=== PATIENT | female | born 1945 | race Two or more races ===

== ENCOUNTER 2024-02-07 20:09 | Inpatient (IN) | payer MEDICARE, OTHER ==
[~2024-02-07] VITALS: Ht 154.9 cm; Wt 70.3 kg
[2024-02-07] MEDS: ENOXAPARIN SODIUM 40 MG/0.4 ML DISP.SYRIN SQ SCH (21:00)
[2024-02-07 21:10] LABS: BASOPHILS % (AUTO) 0.3 % (0.0-2.0); EOSINOPHILS # (AUTO) 0.1 K/uL (0.0-0.7); EOSINOPHILS % (AUTO) 0.8 % (0.0-6.0); HEMATOCRIT 23 % (33-45); HEMOGLOBIN 7.5 g/dL (11.5-14.8); LYMPHOCYTES # (AUTO) 1.1 K/uL (0.8-4.8); LYMPHOCYTES % (AUTO) 7.9 % (20.0-44.0); MEAN CORPUSCULAR HEMOGLOBIN 31 PG (26.0-33.0); MEAN CORPUSCULAR HGB CONC 33 g/dl (31.0-36.0); MEAN CORPUSCULAR VOLUME 95 fL (82-100); MONOCYTES % (AUTO) 7.1 % (2.0-12.0); NEUTROPHILS # (AUTO) 11.7 K/uL (1.8-8.9); NEUTROPHILS % (AUTO) 83.9 % (43.0-81.0); PLATELET COUNT (AUTO) 283 K/uL (150-450); RED BLOOD CELL COUNT(AUTO) 2.43 MIL/uL (4.0-5.2); RED CELL DISTRIBUTION WIDTH 13.1 % (11.5-15.0); WHITE BLOOD COUNT (AUTO) 13.9 K/uL (4.3-11.0)
[2024-02-07 21:15] LABS: CALCIUM, SERUM 9.3 mg/dL (8.5-10.1); CARBON DIOXIDE 24 mmol/L (21-32); CHLORIDE 102 mmol/L (98-107); CREATININE 1.2 mg/dL (0.6-1.3); GLUCOSE 107 mg/dL (74-106); POTASSIUM 3.8 mmol/L (3.5-5.1); SODIUM SERUM 131 mmol/L (136-145); UREA NITROGEN, BLOOD 29 mg/dL (7-18)
[2024-02-07 21:27] LABS: ALANINE AMINOTRANSFERASE 58 U/L (12-78); ALBUMIN 2.9 g/dL (3.4-5.0); ALKALINE PHOSPHATASE 150 U/L (46-116); ASPARTATE AMINOTRANSFERASE 16 U/L (15-37); BILIRUBIN,DIRECT 0.1 mg/dL (0.0-0.2); BILIRUBIN,TOTAL 0.3 mg/dL (0.2-1.0); LIPASE 65 U/L (16-77); TOTAL PROTEIN, SERUM 8.2 g/dL (6.4-8.2)
[2024-02-07] MEDS ORDERED: VANCOMYCIN 1 GM /D5W 250 ML PB IV ONE (21:40)
[2024-02-07] MEDS ORDERED: PIPERACI/TAZO 3.375GM/D5W 50ML PB IV ONE (21:41)
[2024-02-07] MEDS: PIPERACILLIN /TAZOBACTAM 3.375 G in IV D5W 50 ML IV ONE (21:45)
[2024-02-07 21:59] LABS: APPEARANCE,URINE Clear (CLEAR); BILIRUBIN,URINE Negative (NEGATIVE); BLOOD, URINE Small Ery/uL (NEGATIVE); COLOR,URINE YELLOW (YELLOW); KETONES,URINE Negative (NEGATIVE); LEUKOCYTE ESTERASE ,URINE Negative (NEGATIVE); NITRITE, URINE Negative (NEGATIVE); PH,URINE 5.5 (5.0-8.0); PROTEIN,URINE 30 mg/dl (NEGATIVE); UGLUCOSE Negative (NEGATIVE); UROBILINOGEN,URINE 0.2 EU/dL (0.2)
[2024-02-07] MEDS: VANCOMYCIN 1 GM in IV D5W 250 ML IV ONE (22:15)
[2024-02-07 22:32] LABS: ADD URINE CULTURE NO; BACTERIA,URINE Rare /HPF (None Seen); SQUAMOUS EPITHELIAL CELL,UR Rare /HPF (None Seen); WBC,URINE 0-2 /HPF (0-3)
[2024-02-07] MEDS ORDERED: ZOLPIDEM TARTRATE 5 MG TABLET PO PRN (23:00)
[2024-02-07] MEDS ORDERED: MAG HYDROX/AL HYDROX/SIMETH 30 ML UDC PO PRN (23:00)
[2024-02-07] MEDS ORDERED: Z GUARD REMEDY 4 OZ OINT TP PRN (23:00)
[2024-02-07] MEDS ORDERED: MAGNESIUM HYDROXIDE 30 ML UDC PO PRN (23:00)
[2024-02-07] MEDS ORDERED: ONDANSETRON HCL/PF 4 MG/2 ML VIAL IVP PRN (23:00)
[2024-02-07 23:05] VITALS: BP 127/58; TEMP 97.8; O2SAT 99
[2024-02-07 23:50] LABS: ANISOCYTOSIS 1+; BASOPHILS % (MANUAL) 0 % (0.0-2.0); EOSINOPHILS % (MANUAL) 1 % (0-4); LYMPHOCYTES % (MANUAL) 12 % (16-48); MONOCYTES % (MANUAL) 5 % (0-11.0); NEUTROPHILS % (MANUAL) 82 (42-76); PLATELET ESTIMATE ADEQUATE
[2024-02-07 23:56] VITALS: BP 127/58; TEMP 97.8; O2SAT 97
[2024-02-08] MEDS: IV D5/0.45 NACL 1,000 ML IV PRN (00:11)
[2024-02-08] MEDS: ENOXAPARIN SODIUM 40 MG/0.4 ML DISP.SYRIN SQ ONE (00:14)
[2024-02-08 07:30] VITALS: BP 139/53; TEMP 98.4; O2SAT 99
[2024-02-08] MEDS: PANTOPRAZOLE 40 MG TABLET.DR PO SCH (07:43)
[2024-02-08 08:06] LABS: LACTIC ACID 0.7 mmol/L (0.4-2.0)
[2024-02-08 08:53] LABS: ALANINE AMINOTRANSFERASE 47 U/L (12-78); ALBUMIN 2.4 g/dL (3.4-5.0); ALKALINE PHOSPHATASE 144 U/L (46-116); ASPARTATE AMINOTRANSFERASE 14 U/L (15-37); BILIRUBIN,DIRECT 0.1 mg/dL (0.0-0.2); BILIRUBIN,TOTAL 0.3 mg/dL (0.2-1.0); CALCIUM, SERUM 9.1 mg/dL (8.5-10.1); CARBON DIOXIDE 22 mmol/L (21-32); CHLORIDE 104 mmol/L (98-107); GLUCOSE 330 mg/dL (74-106); MAGNESIUM 1.9 mg/dL (1.8-2.4); PHOSPHORUS 3.3 mg/dL (2.5-4.9); POTASSIUM 4.6 mmol/L (3.5-5.1); SODIUM SERUM 135 mmol/L (136-145); TOTAL PROTEIN, SERUM 7.4 g/dL (6.4-8.2); UREA NITROGEN, BLOOD 25 mg/dL (7-18)
[2024-02-08 09:22] LABS: BASOPHILS % (AUTO) 0.2 % (0.0-2.0); EOSINOPHILS # (AUTO) 0.1 K/uL (0.0-0.7); EOSINOPHILS % (AUTO) 1.2 % (0.0-6.0); HEMATOCRIT 22 % (33-45); HEMOGLOBIN 7.2 g/dL (11.5-14.8); LYMPHOCYTES # (AUTO) 1.6 K/uL (0.8-4.8); LYMPHOCYTES % (AUTO) 19.8 % (20.0-44.0); MEAN CORPUSCULAR HEMOGLOBIN 32 PG (26.0-33.0); MEAN CORPUSCULAR HGB CONC 34 g/dl (31.0-36.0); MEAN CORPUSCULAR VOLUME 96 fL (82-100); MONOCYTES # (AUTO) 0.5 K/uL (0.1-1.30); MONOCYTES % (AUTO) 6.4 % (2.0-12.0); NEUTROPHILS # (AUTO) 5.9 K/uL (1.8-8.9); NEUTROPHILS % (AUTO) 72.4 % (43.0-81.0); PLATELET COUNT (AUTO) 294 K/uL (150-450); RED BLOOD CELL COUNT(AUTO) 2.26 MIL/uL (4.0-5.2); RED CELL DISTRIBUTION WIDTH 13.4 % (11.5-15.0); WHITE BLOOD COUNT (AUTO) 8.1 K/uL (4.3-11.0)
[2024-02-08] MEDS ORDERED: ATRO2DRO4 RIGHTEYE (11:14)
[2024-02-08] MEDS ORDERED: MELA3TAB41 PO (11:14)
[2024-02-08] MEDS ORDERED: ACET325T53 PO (11:14)
[2024-02-08] MEDS ORDERED: DOCU100C36 PO (11:14)
[2024-02-08] MEDS ORDERED: LISI10TA29 PO (11:14)
[2024-02-08] MEDS ORDERED: HYDR-4076 PO (11:14)
[2024-02-08] MEDS ORDERED: AMLO-212 PO (11:14)
[2024-02-08] MEDS ORDERED: CARV6.252 PO (11:14)
[2024-02-08] MEDS ORDERED: INSU100I26 SQ (11:14)
[2024-02-08] MEDS ORDERED: INSU100V35 SQ (11:14)
[2024-02-08] MEDS ORDERED: MULT-213 PO (11:14)
[2024-02-08] MEDS ORDERED: POLY17PO4 PO (11:14)
[2024-02-08] MEDS ORDERED: GABA-532 PO (11:14)
[2024-02-08] MEDS ORDERED: INSU100I33 SQ (11:14)
[2024-02-08] MEDS ORDERED: FERR325T23 PO (11:14)
[2024-02-08] MEDS ORDERED: ASPI-1169 PO (11:14)
[2024-02-08] MEDS ORDERED: PRED5DRO17 RIGHTEYE (11:14)
[2024-02-08] MEDS ORDERED: PANT40TA49 PO (11:14)
[2024-02-08] MEDS ORDERED: CYCL30DR EACHEYE (11:14)
[2024-02-08] MEDS ORDERED: LIDO700A30 TP (11:14)
[2024-02-08] MEDS ORDERED: APIX5TAB PO (11:14)
[2024-02-08] MEDS: IV D5/ 0.9% NACL 1,000 ML IV PRN (15:01)
[2024-02-08 16:00] VITALS: BP 124/47; TEMP 98.4; O2SAT 98
[2024-02-08 20:00] VITALS: BP 142/51; TEMP 98.4; O2SAT 100
[2024-02-08] MEDS: VANCOMYCIN 1 GM in IV D5W 250 ML IV SCH (21:49)
[2024-02-08] MEDS: ACETAMINOPHEN 325 MG TABLET PO PRN (23:32)
[2024-02-09] MEDS: BLOOD SUGAR DIAGNOSTIC 1 EACH STRIP IN SCH (06:40)
[2024-02-09 07:21] LABS: BASOPHILS % (AUTO) 0.4 % (0.0-2.0); EOSINOPHILS # (AUTO) 0.1 K/uL (0.0-0.7); EOSINOPHILS % (AUTO) 2.2 % (0.0-6.0); HEMATOCRIT 22 % (33-45); HEMOGLOBIN 7.6 g/dL (11.5-14.8); LYMPHOCYTES % (AUTO) 31.5 % (20.0-44.0); MEAN CORPUSCULAR HEMOGLOBIN 32 PG (26.0-33.0); MEAN CORPUSCULAR HGB CONC 35 g/dl (31.0-36.0); MEAN CORPUSCULAR VOLUME 94 fL (82-100); MONOCYTES # (AUTO) 0.6 K/uL (0.1-1.30); NEUTROPHILS # (AUTO) 3.5 K/uL (1.8-8.9); NEUTROPHILS % (AUTO) 55.9 % (43.0-81.0); PLATELET COUNT (AUTO) 291 K/uL (150-450); RED BLOOD CELL COUNT(AUTO) 2.34 MIL/uL (4.0-5.2); RED CELL DISTRIBUTION WIDTH 13.1 % (11.5-15.0); WHITE BLOOD COUNT (AUTO) 6.3 K/uL (4.3-11.0)
[2024-02-09 07:38] LABS: CALCIUM, SERUM 8.8 mg/dL (8.5-10.1); CARBON DIOXIDE 22 mmol/L (21-32); CHLORIDE 107 mmol/L (98-107); CREATININE 0.9 mg/dL (0.6-1.3); GLUCOSE 213 mg/dL (74-106); POTASSIUM 4.3 mmol/L (3.5-5.1); SODIUM SERUM 137 mmol/L (136-145); UREA NITROGEN, BLOOD 15 mg/dL (7-18)
[2024-02-09 07:59] LABS: THYROID STIMULATING HORMONE 5.28 uIU/mL (0.358-3.74); URIC ACID 5.3 mg/dL (2.6-7.2)
[2024-02-09 08:00] VITALS: BP 141/62; TEMP 97.9; O2SAT 99
[2024-02-09 08:48] LABS: MAGNESIUM 1.8 mg/dL (1.8-2.4); PHOSPHORUS 2.8 mg/dL (2.5-4.9)
[2024-02-09] MEDS: prednisoLONE ACETATE 1% SUSP 5 ML BOTTLE RIGHTEYE SCH (12:39)
[2024-02-09 13:30] LABS: URINE SODIUM, RANDOM 124 mmol/l (40-220)
[2024-02-09 16:00] VITALS: BP 145/53; TEMP 98.2; O2SAT 99
[2024-02-09] MEDS: FERROUS SULFATE (325 MG) 325 MG/TAB TABLET PO SCH (17:22)
[2024-02-09] MEDS: DOCUSATE SODIUM 100 MG CAPSULE PO SCH (17:22)
[2024-02-09] MEDS: LISINOPRIL (10MG) 10 MG TABLET PO SCH (17:24)
[2024-02-09] MEDS: CARVEDILOL 6.25 MG TABLET PO SCH (17:24)
[2024-02-09] MEDS: APIXABAN 5 MG TABLET PO SCH (17:25)
[2024-02-09 20:00] VITALS: BP 147/49; TEMP 98.1; O2SAT 100
[2024-02-09] MEDS: INSULIN GLARGINE, 100 UNIT/ML CARTRIDGE SQ SCH (21:55)
[2024-02-10 08:00] VITALS: BP 139/60; TEMP 98.4; O2SAT 100
[2024-02-10] MEDS: GABAPENTIN 100 MG CAPSULE PO SCH (08:55)
[2024-02-10] MEDS: POLYETHYLENE GLYCOL 3350 17 GM POWD.PACK PO SCH (08:55)
[2024-02-10] MEDS: PANTOPRAZOLE 40 MG TABLET.DR PO SCH (08:56)
[2024-02-10] MEDS: ASPIRIN 81 MG TAB.CHEW PO SCH (08:56)
[2024-02-10] MEDS: LIDOCAINE 5% (PATCH) 1 EA PATCH TP SCH (08:57)
[2024-02-10] MEDS: AMLODIPINE BESYLATE 5 MG TABLET PO SCH (08:57)
[2024-02-10 13:16] LABS: CALCIUM, SERUM 8.7 mg/dL (8.5-10.1); CARBON DIOXIDE 24 mmol/L (21-32); CHLORIDE 105 mmol/L (98-107); CREATININE 0.9 mg/dL (0.6-1.3); GLUCOSE 321 mg/dL (74-106); POTASSIUM 4.1 mmol/L (3.5-5.1); SODIUM SERUM 138 mmol/L (136-145); UREA NITROGEN, BLOOD 10 mg/dL (7-18)
[2024-02-10 16:00] VITALS: BP 121/54; TEMP 99; O2SAT 99
[2024-02-10 16:35] VITALS: BP 110/50
== END 2024-02-10 18:23 | DRG 638 ==
LOC: ER 20:19 → TELE 22:45 → MED 23:08
PROVIDERS: ADMIT Nurse Practitioner Family
DX: E11.649 Type 2 diabetes mellitus with hypoglycemia without coma (principal); E87.1 Hypo-osmolality and hyponatremia; S22.41XA Multiple fractures of ribs, right side, initial encounter for closed fracture; E86.0 Dehydration; E88.09 Other disorders of plasma-protein metabolism, not elsewhere classified; D64.9 Anemia, unspecified; D72.829 Elevated white blood cell count, unspecified; Z88.0 Allergy status to penicillin; R79.89 Other specified abnormal findings of blood chemistry; Z20.822 Contact with and (suspected) exposure to COVID-19; X58.XXXA Exposure to other specified factors, initial encounter; Y93.9 Activity, unspecified; Y92.129 Unspecified place in nursing home as the place of occurrence of the external cause
CPT/HCPCS: 36415; 71045-TC; 80048-TC; 80076-TC; 81001; 82962-TC; 83605-TC; 83690-TC; 83735-TC; 83935-TC; 84100-TC; 84300-TC; 84443-TC; 84484-TC; 84550-TC; 85025-TC; 87040-TC; 87081-TC; 87086-TC; A4223; G0378; J1650; J1815; J2543; J3370; J3490; J7042; J7060

== ENCOUNTER 2024-09-04 03:33 | Inpatient (IN) | payer MEDICARE, OTHER ==
[~2024-09-04] VITALS: Ht 157.5 cm; Wt 69.9 kg
[~2024-09-04 03:33] MED LIST: ACET325T53 PO; AMLO-212 PO; APIX5TAB PO; ASPI-1169 PO; ATRO2DRO4 RIGHTEYE; CARV6.252 PO; CYCL30DR EACHEYE; DOCU100C36 PO; FERR325T23 PO; GABA-532 PO; HYDR-4076 PO; INSU100I26 SQ; INSU100I33 SQ; INSU100V35 SQ; LIDO700A30 TP; LISI10TA29 PO; MELA3TAB41 PO; MULT-213 PO; PANT40TA49 PO; POLY17PO4 PO; PRED5DRO17 RIGHTEYE
[2024-09-04 04:48] LABS: BASOPHILS # (AUTO) 0.1 K/uL (0.0-0.2); EOSINOPHILS % (AUTO) 0.5 % (0.0-6.0); HEMATOCRIT 25 % (33-45); HEMOGLOBIN 8.8 g/dL (11.5-14.8); LYMPHOCYTES # (AUTO) 1.7 K/uL (0.8-4.8); LYMPHOCYTES % (AUTO) 23.5 % (20.0-44.0); MEAN CORPUSCULAR HEMOGLOBIN 31 PG (26.0-33.0); MEAN CORPUSCULAR HGB CONC 35 g/dl (31.0-36.0); MEAN CORPUSCULAR VOLUME 90 fL (82-100); MONOCYTES # (AUTO) 0.8 K/uL (0.1-1.30); MONOCYTES % (AUTO) 10.1 % (2.0-12.0); NEUTROPHILS # (AUTO) 4.8 K/uL (1.8-8.9); NEUTROPHILS % (AUTO) 64.9 % (43.0-81.0); PLATELET COUNT (AUTO) 283 K/uL (150-450); RED CELL DISTRIBUTION WIDTH 12.5 % (11.5-15.0); WHITE BLOOD COUNT (AUTO) 7.4 K/uL (4.3-11.0)
[2024-09-04 05:08] LABS: CALCIUM, SERUM 8.5 mg/dL (8.5-10.1); CREATININE 1.1 mg/dL (0.6-1.3); POTASSIUM 4.1 mmol/L (3.5-5.1)
[2024-09-04 05:23] LABS: ALBUMIN 2.5 g/dL (3.4-5.0); BILIRUBIN,TOTAL 0.2 mg/dL (0.2-1.0); TOTAL PROTEIN, SERUM 7.3 g/dL (6.4-8.2)
[2024-09-04] MEDS ORDERED: ACETAMINOPHEN ES 500 MG TABLET ONE (07:51)
[2024-09-04] MEDS: ACETAMINOPHEN 325 MG TABLET PO ONE (07:52)
[2024-09-04] MEDS ORDERED: GUAI100S9 PO (09:31)
[2024-09-04] MEDS ORDERED: ZINC56.713 TP (09:31)
[2024-09-04] MEDS ORDERED: IPRA3AMP22 IH (09:31)
[2024-09-04] MEDS ORDERED: INSU100V36 SQ (09:31)
[2024-09-04] MEDS ORDERED: ONDA4TAB5 PO (09:31)
[2024-09-04] MEDS ORDERED: Z GUARD REMEDY 4 OZ OINT TP PRN (12:30)
[2024-09-04] MEDS ORDERED: ONDANSETRON HCL/PF 4 MG/2 ML VIAL IVP PRN (12:30)
[2024-09-04] MEDS ORDERED: MAG HYDROX/AL HYDROX/SIMETH 30 ML UDC PO PRN (12:30)
[2024-09-04] MEDS ORDERED: GUAIFENESIN 300 MG/15 ML UDC PO PRN (12:30)
[2024-09-04] MEDS ORDERED: hydrALAZINE HCL 25 MG TABLET PO PRN (12:30)
[2024-09-04] MEDS ORDERED: ENOXAPARIN SODIUM 30 MG/0.3 ML DISP.SYRIN SQ SCH (12:30)
[2024-09-04] MEDS: IPRATROPIUM NEB FS 0.5 MG/2.5 ML AMPUL.NEB NEB SCH (13:30)
[2024-09-04] MEDS: ALBUTEROL FS 2.5 MG/3 ML VIAL.NEB NEB SCH (13:30)
[2024-09-04] MEDS: AMLODIPINE BESYLATE 5 MG TABLET PO SCH (14:31)
[2024-09-04] MEDS: FERROUS SULFATE (325 MG) 325 MG/TAB TABLET PO SCH (14:31)
[2024-09-04] MEDS ORDERED: DEXTROSE 50%-WATER 50 ML DISP.SYRIN IV PRN (15:30)
[2024-09-04 16:00] VITALS: BP 137/48; TEMP 97.9; O2SAT 98
[2024-09-04] MEDS ORDERED: CT SWABBABLE VALVE TRANS SET 1 EA INFUS.SET MC ONE (16:07)
[2024-09-04] MEDS ORDERED: IOHEXOL-350 100 ML VIAL IV ONE (16:07)
[2024-09-04] MEDS ORDERED: IV NS 0.9% 250 ML IV ONE (16:07)
[2024-09-04] MEDS ORDERED: Medication Not On Formulary EA (Cyclosporine (Restasis) 1 DROP) EACHEYE SCH (17:00)
[2024-09-04] MEDS: LISINOPRIL (10MG) 10 MG TABLET PO SCH (17:06)
[2024-09-04] MEDS: CARVEDILOL 6.25 MG TABLET PO SCH (17:06)
[2024-09-04] MEDS: APIXABAN 5 MG TABLET PO SCH (17:07)
[2024-09-04] MEDS: DOCUSATE SODIUM 100 MG CAPSULE PO SCH (17:08)
[2024-09-04] MEDS: ZINC OXIDE 56.7 GM TUBE TP SCH (17:11)
[2024-09-04] MEDS: BLOOD SUGAR DIAGNOSTIC 1 EACH STRIP IN SCH (17:15)
[2024-09-04] MEDS: INSULIN REGULAR, HUMAN 100 UNIT/ML 3 ML VIAL SQ PRN (17:15)
[2024-09-04] MEDS ORDERED: DOCUSATE SODIUM 100 MG CAPSULE PO SCH (18:00)
[2024-09-04 20:00] VITALS: BP 126/53; TEMP 97.8; O2SAT 97
[2024-09-04 20:13] VITALS: O2SAT 97
[2024-09-04 20:28] VITALS: O2SAT 100
[2024-09-04] MEDS: INSULIN GLARGINE, 100 UNIT/ML CARTRIDGE SQ SCH (21:33)
[2024-09-04] MEDS: MAGNESIUM HYDROXIDE 30 ML UDC PO PRN (21:38)
[2024-09-04] MEDS ORDERED: Medication Not On Formulary EA (Melatonin 3 MG) PO SCH (22:00)
[2024-09-05] VITALS (9 sets, daily range): BP systolic 112–138; BP diastolic 44–51; TEMP 98.1–98.3; O2SAT 97–100
[2024-09-05 07:16] LABS: BASOPHILS % (AUTO) 0.3 % (0.0-2.0); EOSINOPHILS # (AUTO) 0.1 K/uL (0.0-0.7); EOSINOPHILS % (AUTO) 1.5 % (0.0-6.0); HEMATOCRIT 25 % (33-45); HEMOGLOBIN 8.5 g/dL (11.5-14.8); LYMPHOCYTES # (AUTO) 2.2 K/uL (0.8-4.8); LYMPHOCYTES % (AUTO) 29.8 % (20.0-44.0); MEAN CORPUSCULAR HEMOGLOBIN 31 PG (26.0-33.0); MEAN CORPUSCULAR HGB CONC 35 g/dl (31.0-36.0); MEAN CORPUSCULAR VOLUME 90 fL (82-100); MONOCYTES # (AUTO) 0.6 K/uL (0.1-1.30); MONOCYTES % (AUTO) 8.5 % (2.0-12.0); NEUTROPHILS # (AUTO) 4.5 K/uL (1.8-8.9); NEUTROPHILS % (AUTO) 59.9 % (43.0-81.0); PLATELET COUNT (AUTO) 300 K/uL (150-450); RED BLOOD CELL COUNT(AUTO) 2.73 MIL/uL (4.0-5.2); RED CELL DISTRIBUTION WIDTH 12.6 % (11.5-15.0); WHITE BLOOD COUNT (AUTO) 7.4 K/uL (4.3-11.0)
[2024-09-05 07:51] LABS: CREATININE 0.9 mg/dL (0.6-1.3); MAGNESIUM 2.1 mg/dL (1.8-2.4); PHOSPHORUS 2.7 mg/dL (2.5-4.9); POTASSIUM 4.2 mmol/L (3.5-5.1)
[2024-09-05] MEDS: MULTIVIT W/MINERALS 1 TAB TABLET PO SCH (08:07)
[2024-09-05] MEDS: POLYETHYLENE GLYCOL 3350 17 GM POWD.PACK PO SCH (08:07)
[2024-09-05] MEDS: LIDOCAINE 5% (PATCH) 1 EA PATCH TP SCH (08:07)
[2024-09-05] MEDS: GABAPENTIN 100 MG CAPSULE PO SCH (08:07)
[2024-09-05] MEDS: PANTOPRAZOLE 40 MG TABLET.DR PO SCH (08:07)
[2024-09-05] MEDS: ASPIRIN 81 MG TAB.CHEW PO SCH (08:08)
[2024-09-05] MEDS: ACETAMINOPHEN 325 MG TABLET PO PRN (08:20)
[2024-09-05 12:52] LABS: CHOLESTEROL 141 mg/dL (<200); HDL CHOLESTEROL 35 mg/dL (40-60); LDL 93 mg/dL (0-99); TRIGLYCERIDES 96 mg/dL (30-150)
[2024-09-05] MEDS: ATORVASTATIN 40 MG TABLET PO SCH (22:34)
[2024-09-06] VITALS (11 sets, daily range): BP systolic 124–139; BP diastolic 42–80; TEMP 97.5–97.9; O2SAT 96–100
[2024-09-06 06:57] LABS: BASOPHILS % (AUTO) 0.5 % (0.0-2.0); EOSINOPHILS # (AUTO) 0.1 K/uL (0.0-0.7); EOSINOPHILS % (AUTO) 2.1 % (0.0-6.0); HEMATOCRIT 26 % (33-45); HEMOGLOBIN 8.6 g/dL (11.5-14.8); LYMPHOCYTES # (AUTO) 2.2 K/uL (0.8-4.8); LYMPHOCYTES % (AUTO) 38.3 % (20.0-44.0); MEAN CORPUSCULAR HEMOGLOBIN 30 PG (26.0-33.0); MEAN CORPUSCULAR HGB CONC 33 g/dl (31.0-36.0); MEAN CORPUSCULAR VOLUME 90 fL (82-100); MONOCYTES # (AUTO) 0.6 K/uL (0.1-1.30); MONOCYTES % (AUTO) 9.7 % (2.0-12.0); NEUTROPHILS # (AUTO) 2.8 K/uL (1.8-8.9); NEUTROPHILS % (AUTO) 49.4 % (43.0-81.0); PLATELET COUNT (AUTO) 317 K/uL (150-450); RED BLOOD CELL COUNT(AUTO) 2.84 MIL/uL (4.0-5.2); RED CELL DISTRIBUTION WIDTH 12.8 % (11.5-15.0); WHITE BLOOD COUNT (AUTO) 5.8 K/uL (4.3-11.0)
[2024-09-06 08:59] LABS: CALCIUM, SERUM 8.9 mg/dL (8.5-10.1); CREATININE 1.1 mg/dL (0.6-1.3); POTASSIUM 4.3 mmol/L (3.5-5.1)
[2024-09-07] VITALS (8 sets, daily range): BP systolic 106–109; BP diastolic 40–48; TEMP 97.9; O2SAT 96–100
[2024-09-07] MEDS: INSULIN LISPRO/ASPART 100 UNIT/ML CARTRIDGE SQ SCH (08:20)
[2024-09-07] MEDS ORDERED: POLYVINYL ALCOHOL 15 ML BOTTLE EACHEYE PRN (09:00)
== END 2024-09-07 17:13 | DRG 71 ==
LOC: ER 03:35 → MED 11:36
PROVIDERS: ADMIT Nurse Practitioner Family; ATTEND Nurse Practitioner Family
DX: I67.2 Cerebral atherosclerosis (principal); E44.1 Mild protein-calorie malnutrition; R51.9 Headache, unspecified; E11.9 Type 2 diabetes mellitus without complications; I10 Essential (primary) hypertension; K21.9 Gastro-esophageal reflux disease without esophagitis; D63.8 Anemia in other chronic diseases classified elsewhere; E88.09 Other disorders of plasma-protein metabolism, not elsewhere classified; I48.91 Unspecified atrial fibrillation; Z79.4 Long term (current) use of insulin; Z79.01 Long term (current) use of anticoagulants; Z88.0 Allergy status to penicillin; M19.90 Unspecified osteoarthritis, unspecified site; Z79.82 Long term (current) use of aspirin; Z68.28 Body mass index [BMI] 28.0-28.9, adult; R53.1 Weakness; Z86.73 Personal history of transient ischemic attack (TIA), and cerebral infarction without residual deficits
CPT/HCPCS: 36415; 70450-TC; 70496-TC; 70498-TC; 70551-TC; 71045-TC; 72125-TC; 80048-TC; 80053-TC; 80061-TC; 82962-TC; 83735-TC; 83880; 84100-TC; 84484-TC; 85025-TC; 87081-TC; 93307-TC; 94760-TC; 94762-TC; 94799-TC; 97110-TC; 97530-TC; A4223; G0378; J1815; J7030; J7050; Q9967